=== PATIENT | female | born 1945 | race Caucasian/White ===

== ENCOUNTER 2020-01-12 11:05 | Emergency (ER) | payer MEDICARE, OTHER ==
[~2020-01-12] VITALS: Ht 170.2 cm; Wt 85.5 kg
[2020-01-12] MEDS ORDERED: ECOTRIN81 MG (12:28)
[2020-01-12] MEDS ORDERED: VITAMIN B-121000 MCG PO (12:28)
[2020-01-12] MEDS ORDERED: ALEVE220 M1 (12:28)
[2020-01-12] MEDS ORDERED: CALCIUM 500+D1 EACH (12:28)
[2020-01-12] MEDS ORDERED: MULTIVITAMINS1 EAC7 (12:28)
[2020-01-12] MEDS ORDERED: ZYRTEC10 M3 (12:28)
[2020-01-12] MEDS ORDERED: METAMUCIL POWD174 GM (12:28)
[2020-01-12] MEDS ORDERED: TRULICITY0.75 MG/0. (12:28)
[2020-01-12] MEDS ORDERED: JARDIANCE10 MG (12:28)
[2020-01-12] MEDS ORDERED: BENADRYL25 M1 (12:28)
[2020-01-12] MEDS ORDERED: LOSARTAN POTASS25 MG (12:28)
[2020-01-12] MEDS ORDERED: MYRBETRIQ50 MG (12:28)
[2020-01-12] MEDS ORDERED: SYNTHROID150 MCG PO (12:28)
[2020-01-12] MEDS ORDERED: FLECTOR1 EACH (12:28)
[2020-01-12] MEDS ORDERED: JANUVIA100 MG PO (12:28)
[2020-01-12] MEDS ORDERED: PRAVASTATIN SOD40 MG (12:28)
[2020-01-12] MEDS ORDERED: CLARITIN-D 241 EACH PO (12:28)
[2020-01-12] MEDS ORDERED: OMEGA-31000 MG (12:28)
[2020-01-12] MEDS ORDERED: CLOBETASOL1 EA/15 GM (12:28)
--- NOTE | 2020-01-12 12:38 | Diagnostic Imaging Report ---
EXAM: CT Abdomen and Pelvis WITHOUT contrast INDICATION: ^pain constpation ^[id number] ^1200 COMPARISON: None. TECHNIQUE: Abdomen and pelvis were scanned utilizing a multidetector helical scanner from the lung base to the pubic symphysis without administration of IV contrast. Absence of intravenous contrast decreases sensitivity for detection of focal lesions and vascular pathology. Coronal and sagittal reformations were obtained. Routine protocol was performed. IV CONTRAST: None ORAL CONTRAST: None. COMPLICATIONS: None RADIATION DOSE: Total DLP: 1103.80 mGy*cm Estimated effective dose: (DLP x 0.015 x size factor) mSv CTDIvol has been reviewed. It is below the limits set by the Radiation Protocol Committee (RPC). FINDINGS: LINES and TUBES: None. LOWER THORAX: Left basilar linear atelectasis/scarring. Mild hazy opacity seen posterior right base and anterior left lower lobe (series 2, image 2). HEPATOBILIARY: Unenhanced liver is unremarkable. No biliary ductal dilation. GALLBLADDER: No radio-opaque stones or sludge. No wall thickening. SPLEEN: No splenomegaly. Numerous tiny calcified granulomas. PANCREAS: No focal masses or ductal dilatation. ADRENALS: No adrenal nodules KIDNEYS/URETERS: No hydronephrosis. Limited for evaluation of renal parenchyma without intravenous contrast. No stones. GI TRACT: No abnormal distention, wall thickening, or evidence of bowel obstruction. Colonic diverticulosis with mild pericolonic fat stranding and peritoneal thickening in the left lower pelvis (series 2 image 67 or series 301 image 124). Appendix is normal. PELVIC ORGANS/BLADDER: Grossly unremarkable. Evaluation is limited by streak artifacts from bilateral hip prosthesis. LYMPH NODES: No lymphadenopathy. VESSELS: Unremarkable. PERITONEUM / RETROPERITONEUM: No free air or fluid. BONES: Degenerative changes of spine, most notable at L2-L3. There is also L3 vertebral body hemangioma. Bilateral hip arthroplasty. SOFT TISSUES: Unremarkable. IMPRESSION: Colonic diverticulosis with mild uncomplicated diverticulitis. Mild hazy opacities in posterior right lung base and anterior left lower lobe. Developing infectious/inflammatory process cannot be excluded. Signed by: Dr. Rubén Garza MD on 01/12/2020 12:35 PM
[2020-01-12] MEDS ORDERED: GOLYTELY SOLU4000 ML PO (12:55)
[2020-01-12 12:59] VITALS: BP 136/66
== END 2020-01-12 13:07 | disposition home or self-care (01) ==
LOC: FSED 11:05
DX: R10.84 Generalized abdominal pain (principal); K59.00 Constipation, unspecified
CPT/HCPCS: 74176; 99283

== ENCOUNTER 2021-08-15 11:49 | Emergency (ER) | payer MEDICARE, OTHER ==
[~2021-08-15] VITALS: Ht 170.2 cm; Wt 79.4 kg
[~2021-08-15 11:49] MED LIST: ALEVE220 M1; BENADRYL25 M1; CALCIUM 500+D1 EACH; CLARITIN-D 241 EACH PO; CLOBETASOL1 EA/15 GM; ECOTRIN81 MG; FLECTOR1 EACH; GOLYTELY SOLU4000 ML PO; JANUVIA100 MG PO; JARDIANCE10 MG; LOSARTAN POTASS25 MG; METAMUCIL POWD174 GM; MULTIVITAMINS1 EAC7; MYRBETRIQ50 MG; OMEGA-31000 MG; PRAVASTATIN SOD40 MG; SYNTHROID150 MCG PO; TRULICITY0.75 MG/0.; VITAMIN B-121000 MCG PO; ZYRTEC10 M3
[2021-08-15] MEDS ORDERED: MECLIZINE HCL 12.5 MG TAB PO ONE ×2 (12:00→12:30)
[2021-08-15] MEDS ORDERED: MECLIZINE HCL 12.5 MG TAB ONE (12:19)
[2021-08-15] MEDS ORDERED: MECLIZINE HCL12.5 MG PO (12:55)
== END 2021-08-15 13:39 | disposition home or self-care (01) ==
LOC: FSED 11:53
DX: R42 Dizziness and giddiness (principal); R94.31 Abnormal electrocardiogram [ECG] [EKG]; L40.9 Psoriasis, unspecified; M25.552 Pain in left hip; M25.551 Pain in right hip; M25.562 Pain in left knee; M25.561 Pain in right knee
CPT/HCPCS: 70450; 80053; 81003; 82553; 84484; 85025; 93005; 99283; J8597

== ENCOUNTER 2021-09-30 13:16 | Emergency (ER) | payer MEDICARE, OTHER ==
[~2021-09-30] VITALS: Ht 170.2 cm; Wt 81.4 kg
[~2021-09-30 13:16] MED LIST changes: +MECLIZINE HCL12.5 MG PO
[2021-09-30] MEDS ORDERED: ZITHROMAX250 MG PO (14:02)
== END 2021-09-30 14:12 | disposition home or self-care (01) ==
LOC: FSED 13:58
DX: U07.1 COVID-19 (principal); J20.9 Acute bronchitis, unspecified; R05.9 Cough, unspecified; I10 Essential (primary) hypertension; E11.9 Type 2 diabetes mellitus without complications; E78.5 Hyperlipidemia, unspecified; E03.9 Hypothyroidism, unspecified
CPT/HCPCS: 99282

== ENCOUNTER 2022-03-04 18:08 | Emergency (ER) | payer MEDICARE, OTHER ==
[~2022-03-04] VITALS: Ht 170.2 cm; Wt 81.2 kg
[~2022-03-04 18:08] MED LIST changes: +ZITHROMAX250 MG PO
[2022-03-04] MEDS ORDERED: MIRALAX17 GM PO (18:35)
[2022-03-04] MEDS ORDERED: ONDANSETRON ODT4 MG PO (18:36)
== END 2022-03-04 18:37 | disposition home or self-care (01) ==
LOC: FSED 18:15
DX: K56.41 Fecal impaction (principal); I10 Essential (primary) hypertension; E11.9 Type 2 diabetes mellitus without complications; E78.5 Hyperlipidemia, unspecified; E03.9 Hypothyroidism, unspecified
CPT/HCPCS: 99284

== ENCOUNTER 2022-03-14 17:31 | Emergency (ER) | payer MEDICARE, OTHER ==
[~2022-03-14] VITALS: Ht 170.2 cm; Wt 81.2 kg
[~2022-03-14 17:31] MED LIST changes: +MIRALAX17 GM PO; +ONDANSETRON ODT4 MG PO
== END 2022-03-14 20:35 | disposition home or self-care (01) ==
LOC: ER 17:44
DX: K56.41 Fecal impaction (principal); I10 Essential (primary) hypertension; E11.9 Type 2 diabetes mellitus without complications; E78.5 Hyperlipidemia, unspecified; E03.9 Hypothyroidism, unspecified; L40.9 Psoriasis, unspecified
CPT/HCPCS: 74019; 99283

== ENCOUNTER 2022-11-03 19:12 | Emergency (ER) | payer MEDICARE, OTHER ==
[~2022-11-03] VITALS: Ht 170.2 cm; Wt 79.8 kg
[2022-11-03] MEDS ORDERED: TRAMADOL HCL 50 MG TAB PO STA (19:59)
[2022-11-03] MEDS ORDERED: ACETAMINOPHEN/CODEINE 300MG - 30MG TAB PO ONE (20:00)
[2022-11-03] MEDS ORDERED: TRAMADOL HCL 50 MG TAB ONE (20:16)
[2022-11-03] MEDS ORDERED: ACETAMINOPHEN-1 EAC4 PO (21:13)
[2022-11-03 21:20] VITALS: BP 157/74
== END 2022-11-03 21:20 | disposition home or self-care (01) ==
LOC: FSED 19:23
DX: S00.83XA Contusion of other part of head, initial encounter (principal); S00.532A Contusion of oral cavity, initial encounter; M54.2 Cervicalgia; W01.198A Fall on same level from slipping, tripping and stumbling with subsequent striking against other object, initial encounter; Y93.01 Activity, walking, marching and hiking; Y92.89 Other specified places as the place of occurrence of the external cause; I10 Essential (primary) hypertension; E11.9 Type 2 diabetes mellitus without complications; E78.5 Hyperlipidemia, unspecified; E03.9 Hypothyroidism, unspecified; L40.9 Psoriasis, unspecified
CPT/HCPCS: 70450; 70486; 72125; 99283

== ENCOUNTER 2025-02-04 12:50 | Emergency (ER) | payer MEDICARE, OTHER ==
[~2025-02-04] VITALS: Ht 170.2 cm; Wt 77.1 kg
[~2025-02-04 12:50] MED LIST changes: +ACETAMINOPHEN-1 EAC4 PO; -JARDIANCE10 MG; +JARDIANCE10 MG PO; -TRULICITY0.75 MG/0.; +TRULICITY0.75 MG/0. SQ
[2025-02-04] MEDS ORDERED: LIDOCAINE HCL 2% 2 ML AMP INJ ONE (13:00)
[2025-02-04] MEDS ORDERED: LIDOCAINE HCL 1% 30ML-PF VIAL ONE (13:07)
[2025-02-04] MEDS: LIDOCAINE HCL 1% LOCAL INJ 20 ML VIAL INJ ONE (13:24)
[2025-02-04] MEDS: ACETAMINOPHEN 325 MG TAB PO ONE (14:52)
[2025-02-04] MEDS ORDERED: VITAMIN D350 MC1 (14:52)
[2025-02-04] MEDS ORDERED: SLOW RELEASE I143 MG (14:52)
[2025-02-04] MEDS ORDERED: LOSARTAN POTASS25 MG PO (14:52)
[2025-02-04] MEDS ORDERED: OXYBUTYNIN CHLOR5 MG PO (14:52)
[2025-02-04] MEDS ORDERED: NEXIUM40 MG PO (14:52)
[2025-02-04] MEDS ORDERED: ATENOLOL50 MG PO (14:52)
[2025-02-04] MEDS ORDERED: GLIPIZIDE5 MG PO (14:52)
[2025-02-04] MEDS ORDERED: CLARITIN10 MG PO (14:52)
[2025-02-04 15:27] VITALS: PULSE 60; RESP 16; TEMP 98; O2SAT 95
== END 2025-02-04 15:30 | disposition other institution (70) ==
LOC: FSED 12:53
DX: S01.81XA Laceration without foreign body of other part of head, initial encounter (principal); S06.5XAA Traumatic subdural hemorrhage with loss of consciousness status unknown, initial encounter; W17.89XA Other fall from one level to another, initial encounter; Y93.01 Activity, walking, marching and hiking; Y92.89 Other specified places as the place of occurrence of the external cause; I10 Essential (primary) hypertension; E11.9 Type 2 diabetes mellitus without complications; E78.5 Hyperlipidemia, unspecified; E03.9 Hypothyroidism, unspecified
CPT/HCPCS: 12013; 70450; 80053; 85025; 96372; 99284; J2003

== ENCOUNTER 2025-02-14 09:53 | Emergency (ER) | payer MEDICARE, OTHER ==
[~2025-02-14] VITALS: Ht 170.2 cm; Wt 78.6 kg
[~2025-02-14 09:53] MED LIST changes: +ATENOLOL50 MG PO; +CLARITIN10 MG PO; +GLIPIZIDE5 MG PO; +LOSARTAN POTASS25 MG PO; +NEXIUM40 MG PO; +OXYBUTYNIN CHLOR5 MG PO; +SLOW RELEASE I143 MG; +VITAMIN D350 MC1
[2025-02-14 10:20] VITALS: PULSE 78; RESP 16; TEMP 97.9; O2SAT 95
== END 2025-02-14 10:48 | disposition home or self-care (01) ==
LOC: FSED 10:06
DX: Z48.02 Encounter for removal of sutures (principal)
CPT/HCPCS: 99283; S0630

== ENCOUNTER 2025-02-22 11:27 | Emergency (ER) | payer MEDICARE, OTHER ==
[~2025-02-22] VITALS: Ht 170.2 cm; Wt 76.2 kg
[2025-02-22 11:30] VITALS: PULSE 70; RESP 20; TEMP 98.3; O2SAT 96
[2025-02-22] MEDS ORDERED: CLEOCIN HCL300 MG PO (11:50)
[2025-02-22] MEDS ORDERED: MUPIROCIN22 GM TOP (11:50)
[2025-02-22] MEDS ORDERED: TYLENOL325 MG PO (11:57)
== END 2025-02-22 12:27 | disposition home or self-care (01) ==
LOC: FSED 11:32
DX: Z48.01 Encounter for change or removal of surgical wound dressing (principal); I12.9 Hypertensive chronic kidney disease with stage 1 through stage 4 chronic kidney disease, or unspecified chronic kidney disease; E11.22 Type 2 diabetes mellitus with diabetic chronic kidney disease; N18.9 Chronic kidney disease, unspecified; E78.5 Hyperlipidemia, unspecified; E03.9 Hypothyroidism, unspecified; L40.9 Psoriasis, unspecified; M19.09 Primary osteoarthritis, other specified site; M25.552 Pain in left hip; M25.551 Pain in right hip; M25.562 Pain in left knee; M25.561 Pain in right knee
CPT/HCPCS: 99284

== ENCOUNTER 2025-04-11 17:42 | Emergency (ER) | payer MEDICARE, OTHER ==
[~2025-04-11] VITALS: Ht 170.2 cm; Wt 76.7 kg
[~2025-04-11 17:42] MED LIST changes: +CLEOCIN HCL300 MG PO; +MUPIROCIN22 GM TOP; +TYLENOL325 MG PO
[2025-04-11 17:49] VITALS: PULSE 74; RESP 16; TEMP 97.7; O2SAT 94
[2025-04-11] MEDS ORDERED: DIPHENHYDRAMINE25 MG PO (18:10)
[2025-04-11] MEDS ORDERED: CLEOCIN HCL300 MG PO (18:10)
[2025-04-11] MEDS ORDERED: MUPIROCIN22 GM TOP (18:10)
[2025-04-11] MEDS ORDERED: PROBIOTIC & AC1 EACH PO (18:10)
[2025-04-11] MEDS: DEXAMETHASONE SOD PHOS INJ 4 MG/ML SDV IM ONE (18:15)
== END 2025-04-11 18:19 | disposition home or self-care (01) ==
LOC: FSED 17:47
DX: T63.421A Toxic effect of venom of ants, accidental (unintentional), initial encounter (principal); I12.9 Hypertensive chronic kidney disease with stage 1 through stage 4 chronic kidney disease, or unspecified chronic kidney disease; E11.22 Type 2 diabetes mellitus with diabetic chronic kidney disease; E11.65 Type 2 diabetes mellitus with hyperglycemia; N18.9 Chronic kidney disease, unspecified; E78.5 Hyperlipidemia, unspecified; E03.9 Hypothyroidism, unspecified; M19.09 Primary osteoarthritis, other specified site
CPT/HCPCS: 36415; 82948; 96372; 99283; J1100